=== PATIENT | male | born 1965 | race Caucasian/White ===

== ENCOUNTER → 2017-03-08 12:39 | Outpatient (CLI) | payer BC ==
[2014-04-14 13:10] VITALS: BMI 31.1
[~2017-03-08 12:39] MED LIST: HYDROCHLOROTH12.5 M1 PO; HYDROCODON-ACE1 EAC7 PO; PRINIVIL20 MG PO; ZOFRAN4 MG PO
== END | disposition home or self-care (01) ==
LOC: D.RAD 12:39
DX: R13.12 Dysphagia, oropharyngeal phase (principal)